=== PATIENT | female | born 1970 | race Caucasian/White ===

== ENCOUNTER 2020-06-20 10:05 | Inpatient (IN) ==
[2020-06-20] MEDS ORDERED: IOPAMIDOL 125 ML BOTTLE IV ONE (10:06)
[2020-06-20] MEDS ORDERED: 0.9 % SODIUM CHLORIDE 1,000 ML IV ONE ×2 (10:31→13:32)
[2020-06-20] MEDS ORDERED: ONDANSETRON 4 MG/2 ML VIAL IV ONE (10:31)
--- NOTE | 2020-06-20 10:36 | Emergency Department Note ---
HPI General Chief complaint: Cold/Flu Symptoms Stated complaint: N/V/D, fever chills shortness of breath Time Seen by Provider: 06/20/20 13:22 Source: patient Mode of arrival: ambulatory Limitations: no limitations History of Present Illness HPI Narrative: Narrative: 50-year-old female patient presents emergency dep artment chief complaint of worsening nausea, vomiting, diarrhea, abdominal pain x5 days. Patient tells me symptoms started Thursday with nausea. She has vomited too numerous to count. She contacted her primary care provider who started her on Zofran ODT. She mentions this been slightly helpful. She still continues to be nauseated but has not vomited today. She has had multiple bowel movements. She denies hematochezia or melena. She denies any hematemesis. She denies any other sick contacts at home. She denies any known Covid exposure. She denies ingesting any foul or suspicious foods prior to symptom onset. She describes her abdominal pain as diffuse but at times she does have a radiating pain from her right flank into her groin. She admits to history of renal calculi. She has known type II diabetic that currently uses insulin but is unsure what her blood sugars are because she does not take it regularly. ROS: Denies systemic illness, fever, sweats, chills. Denies headaches, tinnitus, or vision changes. Admits to chronic runny nose. Denies sinus congestion or cough. Admits to dyspnea with exertion. Denies shortness of breath currently. Denies retrosternal chest pain or palpitations. Denies dysuria, hematuria, urinary frequency, or urinary urgency. Admits to generalized weakness. Related Data Home Medications Medication Instructions Recorded Confirmed insulin glargine [Lantus Solostar 80 unit SUBCUT HS 06/20/20 06/20/20 U-100 Insulin] ondansetron HCl [Zofran] 8 mg PO Q8H PRN 06/20/20 06/20/20 telmisartan 40 mg PO DAILY 06/20/20 06/20/20 Allergies Allergy/AdvReac Type Severity Reaction Status Date / Time No Known Drug Allergies Allergy Unverified 06/20/20 10:06 Review of Systems ROS ROS Narrative: Narrative: All systems ED: reviewed and negative except as stated. [facility] Narrative Patient History Narrative: Narrative: Medical/Surgical/Family History All Active Problems (Updated 06/20/20 @ 14:38 by Juan R Kwon PA-C) Diabetic ketoacidosis (Acute) UTI (urinary tract infection) (Acute) Essential hypertension (Acute) Type 2 diabetes mellitus (Acute) Medical History (Updated 06/20/20 @ 14:38 by Juan R Kwon PA-C) Essential hypertension (Acute) Type 2 diabetes mellitus (Acute) Surgical History (Updated 06/20/20 @ 10:36 by Juan R Kwon PA-C) Hx of cholecystectomy (Acute) Social History Smoking Status: Never smoker Exam Narrative Narrative: Narrative: General Limitations: no limitations General appearance: Present other (Well-developed, well-nourished, morbidly obese, and acutely ill-appearing 50-year-old female patient laying semirecumbent on the emergency room gurney in no acute respiratory distress. She is afebrile with normal vital signs.) Head Head: Present normocephalic Eye Eye: Present normal appearance, PERRL and EOMI; Absent scleral icterus and conjunctival injection ENT ENT: Present normal oropharynx and mucous membranes dry Neck Neck: Present trachea midline; Absent lymphadenopathy and thyromegaly Chest Chest: Present symmetric chest wall rise Respiratory Respiratory: Present normal lung sounds bilaterally; Absent respiratory distress, wheezes, stridor, accessory muscle use and prolonged expiratory phase Cardiovascular Cardiovascular: Present regular rate and normal rhythm; Absent systolic murmur and diastolic murmur Adbominal Abdominal: Present soft, tenderness and normal bowel sounds; Absent distention, guarding, rebound, rigidity, organomegaly and mass Expanded Abdominal Abdominal Tenderness: Present diffuse and mild Extremities Extremities: Present normal inspection, full ROM and normal capillary refill; Absent pedal edema Neurological Neurological: Present alert and oriented X3 Psychiatric Psychiatric: Present normal affect and normal mood Skin Skin: Present warm (WNL), dry and normal color Course Course Course Narrative: Differential diagnosis of nausea and vomiting in the adult patient includes the following: Acute gastroenteritis, vestibular neuritis, gastroparesis, GERD, cyclic vomiting syndrome, gastric outlet obstruction, eosinophilic gastroenteritis, and chronic idiopathic intestinal pseudoobstruction. Patient has had 5 days history of profuse nausea, vomiting, diarrhea. She appears dehydrated on exam. We are going to get orthostatic vital signs. We will order some screening laboratory studies including a UA. Patient has a history of renal stones we will wait for the results of her urinalysis prior to ordering any patient was given normal saline 1000 mL as a bolus. She was given Zofran 4 mg IVP to help with the nausea. Reevaluation(s) Reevaluation #1: Orthostatic vital signs showed a decrease in blood pressure from 146/77 laying to 127/68 standing. Time: 11:29 Reevaluation #2: A review the patient's diagnostics of the following: CBC WBC 13.9, all others normal limits. Lactic acid 1.3, CMP sodium 125 (corrected 130), potassium 2.3, chloride 87, CO2 15, anion gap 23, BUN 31, creatinine 1.3, glucose 430, alkaline phosphatase 128, globulin 4.2, all others normal limits. Beta hydroxybutyrate 6.14. UA showing hazy yellow urine specific gravity 1.025, positive proteinuria, positive glucosuria, positive ketonuria, positive leukocyte Estrace, positive WBC, positive mucus, this is going be sent for cult ure. Rapid swab for both Covid/influenza negative. After reviewing all the data patient was provided potassium 20 mEq p.o. in conjunction with regular insulin 5 units IVP. I discussed case briefly my collaborating physician (Dr. Mao) and at this time he recommended adding a venous blood gas to the patient's work-up. Time: 13:03 Reevaluation #3: Venous blood gas showing lactic acid 1.3, base excess -12, carboxyhemoglobin 3.4, total hemoglobin 12.4. After reviewing all the data I discussed these findings with the patient. She appears to be a diabetic ketoacidosis. She meets admission criteria. With this in mind I reached out to our hospitalist (Dr. Carlisle) discussed case briefly with him. At this time the hospitalist did recommend a CT scan of the patient's abdomen/pelvis due to her history of right-sided flank pain and evidence of UTI this will help rule out either renal calculi versus pyelonephritis. He also recommended an insulin drip to be provided to the patient. At this time the hospitalist is going to admit the patient here to our facility. All further treatment decisions, modalities, and ultimate patient disposition will be carried out by the hospitalist. Time: 14:36 Vital Signs Vital signs: Vital Signs Temperature 99 F 06/20/20 10:09 Pulse Rate 89 06/20/20 10:09 Respiratory Rate 18 06/20/20 10:09 Blood Pressure 141/51 06/20/20 10:09 Pulse Oximetry (%) 96 06/20/20 10:09 Temperature 99.3 F H 06/20/20 16:24 Pulse Rate 89 06/20/20 16:28 Respiratory Rate 18 06/20/20 16:28 Blood Pressure 163/89 06/20/20 16:24 Pulse Oximetry (%) 100 06/20/20 16:28 MDM MDM Narrative Medical decision making narrative: Narrative: Lab Data Lab results reviewed: Yes I reviewed the patient's lab results. Result diagrams: 06/20/20 11:18 06/20/20 11:18 Labs: Lab Results 06/20/20 06/20/20 06/20/20 Range/Units 11:18 11:18 11:18 WBC 13.9 H (4.5-11.0) K/mcL RBC 4.48 (4.00-5.20) M/mcL Hgb 12.8 (12.0-15.0) g/dL Hct 38.2 (36.0-48.0) % MCV 85.3 (80.0-100.0) fL MCH 28.6 (26.0-34.0) pg MCHC 33.5 (31.0-36.0) g/dL RDW 11.7 (11.5-14.5) % Plt Count 211 (140-440) K/mcL MPV 9.5 (7.4-10.4) fL Neut % (Auto) 83.3 H (38.0-78.0) % Lymph % (Auto) 2.7 L (15.0-49.0) % [place] % (Auto) 13.9 H (1.0-12.0) % Eos % (Auto) 0 (0.0-7.0) % Baso % (Auto) 0.1 (0.0-2.0) % Lymph # (Auto) 0.37 L (1.50-4.80) K/mcL [place] # (Auto) 1.93 H (0.10-0.90) K/mcL Eos # (Auto) 0 (0.00-0.70) K/mcL Baso # (Auto) 0.02 (0.00-0.20) K/mcL Absolute Neutrophils 11.53 H (1.80-8.00) K/mcL ABG Methemoglobin (0.4-1.5) % VBG pH U VBG pCO2 mmHg VBG pO2 mmHg VBG HCO3 mmol/L VBG Total CO2 mmol/L VBG O2 Saturation % VBG Base Excess (-2-3) VBG Lactic Acid 1.3 (0.5-2.0) mmol/L Carboxyhemoglobin (0.0-1.5) % THgb Total Hemoglobin (13.5-16.5) gm/Dl Sodium 125 L (133-145) mmol/L Potassium 3.3 (3.3-5.1) mmol/L Chloride 87 L (96-108) mmol/L Carbon Dioxide 15 L (22-30) mmol/L Anion Gap 23.0 H (8.0-16.0) BUN 31 H (6-20) mg/dL Creatinine 1.3 H (0.6-1.1) mg/dL GFR Calculation 48 Glucose 430 H (70-105) mg/dL Calcium 9.1 (8.6-10.4) mg/dL Total Bilirubin 0.4 (0.1-1.0) mg/dL AST 10 (<32) U/L ALT 14 (<40) U/L Alkaline Phosphatase 128 H (39-117) U/L Total Protein 7.4 (5.9-8.4) gm/dL Albumin 3.2 (3.2-5.2) gm/dL Globulin 4.2 H (2.2-3.7) gm/dL Albumin/Globulin Ratio 0.8 L (1.0-2.3) Beta-Hydroxybutyrate 6.14 H (<0.27) mmol/L Urine Color Urine Appearance (Clear) Urine pH (5.0-9.0) Ur Specific [place] (1.000-1.035) Urine Protein (Negative) mg/dL Urine Glucose (UA) (Negative) mg/dL Urine Ketones (Negative) mg/dL Urine Occult Blood (Negative) mg/dL Urine Nitrate (Negative) Urine Bilirubin (Negative) mg/dL Urine Urobilinogen mg/dL Ur Leukocyte Esterase (Negative) /ug Urine RBC (0-3) /hpf Urine WBC (0-4) /hpf Ur Squamous Epith Cells (0-4) /hpf Urine Bacteria (0) /hpf Urine Mucus (None) /hpf Ur Culture Indicated? 06/20/20 06/20/20 Range/Units 11:35 13:51 WBC (4.5-11.0) K/mcL RBC (4.00-5.20) M/mcL Hgb (12.0-15.0) g/dL Hct (36.0-48.0) % MCV (80.0-100.0) fL MCH (26.0-34.0) pg MCHC (31.0-36.0) g/dL RDW (11.5-14.5) % Plt Count (140-440) K/mcL MPV (7.4-10.4) fL Neut % (Auto) (38.0-78.0) % Lymph % (Auto) (15.0-49.0) % [place] % (Auto) (1.0-12.0) % Eos % (Auto) (0.0-7.0) % Baso % (Auto) (0.0-2.0) % Lymph # (Auto) (1.50-4.80) K/mcL [place] # (Auto) (0.10-0.90) K/mcL Eos # (Auto) (0.00-0.70) K/mcL Baso # (Auto) (0.00-0.20) K/mcL Absolute Neutrophils (1.80-8.00) K/mcL ABG Methemoglobin 0.3 L (0.4-1.5) % VBG pH 7.23 U VBG pCO2 36.7 mmHg VBG pO2 45.0 mmHg VBG HCO3 14.9 mmol/L VBG Total CO2 16.0 mmol/L VBG O2 Saturation 68.4 % VBG Base Excess -12 L (-2-3) VBG Lactic Acid (0.5-2.0) mmol/L Carboxyhemoglobin 3.4 H (0.0-1.5) % THgb Total Hemoglobin 12.4 L (13.5-16.5) gm/Dl Sodium (133-145) mmol/L Potassium (3.3-5.1) mmol/L Chloride (96-108) mmol/L Carbon Dioxide (22-30) mmol/L Anion Gap (8.0-16.0) BUN (6-20) mg/dL Creatinine (0.6-1.1) mg/dL GFR Calculation Glucose (70-105) mg/dL Calcium (8.6-10.4) mg/dL Total Bilirubin (0.1-1.0) mg/dL AST (<32) U/L ALT (<40) U/L Alkaline Phosphatase (39-117) U/L Total Protein (5.9-8.4) gm/dL Albumin (3.2-5.2) gm/dL Globulin (2.2-3.7) gm/dL Albumin/Globulin Ratio (1.0-2.3) Beta-Hydroxybutyrate (<0.27) mmol/L Urine Color Yellow Urine Appearance Hazy A (Clear) Urine pH 6.0 (5.0-9.0) Ur Specific [place] 1.025 (1.000-1.035) Urine Protein 100 A (Negative) mg/dL Urine Glucose (UA) >=500 A (Negative) mg/dL Urine Ketones 80 A (Negative) mg/dL Urine Occult Blood 0.20 (Negative) mg/dL Urine Nitrate Negative (Negative) Urine Bilirubin Negative (Negative) mg/dL Urine Urobilinogen Negative mg/dL Ur Leukocyte Esterase 500 A (Negative) /ug Urine RBC 32 H (0-3) /hpf Urine WBC 105 H (0-4) /hpf Ur Squamous Epith Cells 1 (0-4) /hpf Urine Bacteria None (0) /hpf Urine Mucus Few A (None) /hpf Ur Culture Indicated? yes ED POC Tests ED POC Tests: ELIER - Influenza A Negative ELIER - Influenza B Negative ELIER - SARS Antigen Negative Discharge Plan Patient/Caregiver Discharge Instructions Pt seen by [facility]/PA only: Yes Clinical Impression: Diabetic ketoacidosis Qualifiers: Diabetes mellitus type: type 2 Diabetes mellitus complication detail: without coma Qualified Code(s): E11.10 - Type 2 diabetes mellitus with ketoacidosis without coma UTI (urinary tract infection) Qualifiers: Urinary tract infection type: site unspecified Hematuria presence: with hematuria Qualified Code(s): N39.0 - Urinary tract infection, site not specified Patient Disposition: Xfer As Inpt ([facility]) Condition: Good Discharge Date/Time: 06/20/20 16:11
[2020-06-20 12:14] LABS: Basophils # (Auto) 0.02 K/mcL (0.00-0.20); Basophils % (Auto) 0.1 % (0.0-2.0); Eosinophils # (Auto) 0 K/mcL (0.00-0.70); Eosinophils % (Auto) 0 % (0.0-7.0); Hematocrit 38.2 % (36.0-48.0); Hemoglobin 12.8 g/dL (12.0-15.0); Lymphocytes # (Auto) 0.37 K/mcL (1.50-4.80); Lymphocytes % (Auto) 2.7 % (15.0-49.0); Mean Cell Volume 85.3 fL (80.0-100.0); Mean Corpuscular HGB Conc 33.5 g/dL (31.0-36.0); Mean Platelet Volume 9.5 fL (7.4-10.4); Monocytes # (Auto) 1.93 K/mcL (0.10-0.90); Monocytes % (Auto) 13.9 % (1.0-12.0); Neutrophils % (Auto) 83.3 % (38.0-78.0); Platelet Count 211 K/mcL (140-440); RBC 4.48 M/mcL (4.00-5.20); Red Cell Distribution Width 11.7 % (11.5-14.5); WBC 13.9 K/mcL (4.5-11.0)
[2020-06-20 12:46] LABS: ALT/SGPT 14 U/L (<40); AST/SGOT 10 U/L (<32); Albumin 3.2 gm/dL (3.2-5.2); Albumin/Globulin Ratio 0.8 (1.0-2.3); Alkaline Phosphatase 128 U/L (39-117); Bilirubin,Total 0.4 mg/dL (0.1-1.0); Blood Urea Nitrogen 31 mg/dL (6-20); Calcium 9.1 mg/dL (8.6-10.4); Carbon Dioxide 15 mmol/L (22-30); Chloride 87 mmol/L (96-108); Globulin 4.2 gm/dL (2.2-3.7); Glomerular Filtration Rate 48; Glucose 430 mg/dL (70-105)
[2020-06-20] MEDS ORDERED: INSULIN REGULAR, HUMAN 1 UNIT/0.01 ML UNIT IV ONE ×2 (13:02→16:23)
[2020-06-20] MEDS ORDERED: POTASSIUM CHLORIDE 20 MEQ TABLET PO ONE (13:02)
[2020-06-20 13:15] LABS: Appearance,Urine HAZY (Clear); Bilirubin,Urine Negative (Negative); Color,Urine YELLOW; Culture Indicated,Urine yes; Glucose,Urine (UA) >=500 mg/dL (Negative); Ketones,Urine 80 mg/dL (Negative); Leukocyte Esterase,Urine 500 /ug (Negative); Mucus,Urine FEW /hpf; Nitrate,Urine Negative (Negative); Protein,Urine 100 mg/dL (Negative); Specific Gravity,Urine 1.025 (1.000-1.035); Urine RBC 32 /hpf (0-3); Urine Squamous Epithelial Cell 1 /hpf (0-4); Urine WBC 105 /hpf (0-4); Urobilinogen,Urine Negative
[2020-06-20 13:49] LABS: Beta Hydroxybutyrate 6.14 mmol/L (<0.27)
[2020-06-20 14:21] LABS: ABG Methemoglobin 0.3 % (0.4-1.5); Total Hemoglobin 12.4 gm/Dl (13.5-16.5); VBG Base Excess -12 (-2-3); VBG HCO3 14.9 mmol/L; VBG Oxygen Saturation 68.4 %; VBG PCO2 36.7 mmHg; VBG PH 7.23 U
[2020-06-20] MEDS ORDERED: POTASSIUM CHLORIDE 20 MEQ in DEXTROSE 5% IN WATER 250 ML IV ONE (14:30)
[2020-06-20] MEDS ORDERED: INSULIN REGULAR, HUMAN 50 UNIT in 0.9 % SODIUM CHLORIDE 99.5 ML IV SCH (14:30)
--- NOTE | 2020-06-20 14:43 | Internal Med History&Physical ---
HPI History of Present Illness Patient information: Note initiated : 06/20/20 at 2:34 pm Service Date, if different from initiated Date: [] Patient: Cally Gordon a 50 y/o F admitted on for N/V/D, Fever Chills Shortness Of Breath. Chief Complaint: [] History of present illness: Ms. Gordon is a 50 year old F Who presents the ED with nausea vomiting diarrhea weakness. Patient went to bed on Thursday night feeling well but woke up Thursday morning start developing nausea vomiting and then some diarrhea on Thursday last episode of diarrhea was yesterday is had nausea today but no vomiting today. She is had headache. Denies fevers or chills. She does admit to some right flank pain with some radiation to groin. She is a diabetic and has not checked her blood glucose in several weeks at least. Last A1c was 11. She does not adhere to a strict diabetic diet. She last took her insulin on Thursday. She denies dysuria but notes her urine has been malodorous. In the ED she was worked up and had a leukocytosis as well as urine analysis was consistent with infection. Appear to be in DKA on laboratory evaluation. She is given IV fluid boluses in the ED and started on insulin drip. Review of Systems: Pertinent positives as above. Denies fever/chills/chest pain/cough/dyspnea. Remaining 10 point review of system reviewed negative. PFSH PFSH All Active Problems (Updated 06/20/20 @ 14:38 by Juan R Kwon PA-C) Diabetic ketoacidosis (Acute) UTI (urinary tract infection) (Acute) Essential hypertension (Acute) Type 2 diabetes mellitus (Acute) Medical History (Updated 06/20/20 @ 14:38 by Juan R Kwon PA-C) Essential hypertension (Acute) Type 2 diabetes mellitus (Acute) Surgical History (Updated 06/20/20 @ 10:36 by Juan R Kwon PA-C) Hx of cholecystectomy (Acute) Social History (Updated 06/20/20 @ 14:37 by Brett Carlisle DO) smoking status: Never smoker additional history: Past medical history please diabetes and hypertension Past surgical history: Kidney stone removal on the right Family: Mother had COPD and diabetes in father diabetes Social: Patient denies tobacco drinks alcohol socially lives by herself MEDS/ALLERGIES Home Medications and Allergies Home Medications Medication Instructions Recorded Confirmed Type Zofran 06/20/20 History insulin glargine [Lantus Solostar 80 unit SUBCUT HS 06/20/20 06/20/20 History U-100 Insulin] ondansetron HCl [Zofran] 4 mg PO Q6H PRN 06/20/20 06/20/20 History telmisartan 40 mg PO DAILY 06/20/20 06/20/20 History Allergies Allergy/AdvReac Type Severity Reaction Status Date / Time No Known Drug Allergies Allergy Unverified 06/20/20 10:06 EXAM Constitutional Vitals: Temp Pulse Resp BP Pulse Ox 99 F 89 18 149/62 98 06/20/20 10:09 06/20/20 14:13 06/20/20 11:03 06/20/20 14:13 06/20/20 14:13 Exam: General: Alert, Awake, No acute Distress, obese Eyes/N/T: EOMI, PERRL, dry MM Head/Neck: neck supple, normocephalic atraumatic CV: RRR, No murmurs, normal s1/s2 Pulm: Clear b/l, no wheezing/rhonchi/rales Abd: soft, nontender, +BS x4. Tenderness to palpation right CVA tenderness Ext: no clubbing/cyanosis/edema Neuro: Alert, no focal deficits, moves all extremities, CN 2-12 grossly intact, symmetrical strength b/l upper/lower, sensations intact b/l upper/lower Skin: warm/dry DATA Data Completed and Pending Labs: Labs from last 24 hours 06/20/20 06/20/20 06/20/20 13:51 11:35 11:18 WBC RBC Hgb Hct MCV MCH MCHC RDW Plt Count MPV Neut % (Auto) Lymph % (Auto) [place] % (Auto) Eos % (Auto) Baso % (Auto) Lymph # (Auto) [place] # (Auto) Eos # (Auto) Baso # (Auto) Absolute Neutrophils ABG Methemoglobin 0.3 L VBG pH 7.23 VBG pCO2 36.7 VBG pO2 45.0 VBG HCO3 14.9 VBG Total CO2 16.0 VBG O2 Saturation 68.4 VBG Base Excess -12 L VBG Lactic Acid 1.3 Carboxyhemoglobin 3.4 H Total Hemoglobin 12.4 L Sodium Potassium Chloride Carbon Dioxide Anion Gap BUN Creatinine GFR Calculation Glucose Calcium Total Bilirubin AST ALT Alkaline Phosphatase Total Protein Albumin Globulin Albumin/Globulin Ratio Beta-Hydroxybutyrate Urine Color Yellow Urine Appearance Hazy A Urine pH 6.0 Ur Specific [place] 1.025 Urine Protein 100 A Urine Glucose (UA) >=500 A Urine Ketones 80 A Urine Occult Blood 0.20 Urine Nitrate Negative Urine Bilirubin Negative Urine Urobilinogen Negative Ur Leukocyte Esterase 500 A Urine RBC 32 H Urine WBC 105 H Ur Squamous Epith Cells 1 Urine Bacteria None Urine Mucus Few A Ur Culture Indicated? yes 06/20/20 06/20/20 11:18 11:18 WBC 13.9 H RBC 4.48 Hgb 12.8 Hct 38.2 MCV 85.3 MCH 28.6 MCHC 33.5 RDW 11.7 Plt Count 211 MPV 9.5 Neut % (Auto) 83.3 H Lymph % (Auto) 2.7 L [place] % (Auto) 13.9 H Eos % (Auto) 0 Baso % (Auto) 0.1 Lymph # (Auto) 0.37 L [place] # (Auto) 1.93 H Eos # (Auto) 0 Baso # (Auto) 0.02 Absolute Neutrophils 11.53 H ABG Methemoglobin VBG pH VBG pCO2 VBG pO2 VBG HCO3 VBG Total CO2 VBG O2 Saturation VBG Base Excess VBG Lactic Acid Carboxyhemoglobin Total Hemoglobin Sodium 125 L Potassium 3.3 Chloride 87 L Carbon Dioxide 15 L Anion Gap 23.0 H BUN 31 H Creatinine 1.3 H GFR Calculation 48 Glucose 430 H Calcium 9.1 Total Bilirubin 0.4 AST 10 ALT 14 Alkaline Phosphatase 128 H Total Protein 7.4 Albumin 3.2 Globulin 4.2 H Albumin/Globulin Ratio 0.8 L Beta-Hydroxybutyrate 6.14 H Urine Color Urine Appearance Urine pH Ur Specific [place] Urine Protein Urine Glucose (UA) Urine Ketones Urine Occult Blood Urine Nitrate Urine Bilirubin Urine Urobilinogen Ur Leukocyte Esterase Urine RBC Urine WBC Ur Squamous Epith Cells Urine Bacteria Urine Mucus Ur Culture Indicated? A/P Narrative A/P Narrative: A: *DKA: *AG Met Acidosis: 2/2 above *SIRS: *UTI: *Pseudohyponatremia: *ULICSE: *DM II: uncontrolled, needs education on diet and BG monitoring *HTN: on ARB *Right flank pain: pending CT, stone vs pyelo *Obesity: P: -IVF's -insulin gtt -monitor electrolytes -Rocephin, pending UC -check a1c - -ppx: Lovenox Time Spent With Patient Time: Total time spent is greater than 50% in coordination of care (as documented) at patient's floor/unit and/or counseling patient:
--- NOTE | 2020-06-20 15:22 | Cat Scan Report ---
CLINICAL INFORMATION: Right flank pain and fever COMPARISON: None. TECHNIQUE: 2.5mm precontrast images were obtained from kidneys through bladder. 60 cc of Isovue-370 were then injected intravenously. 7 minutes later, 60 cc of Isovue 370 was reinjected and 8 minutes after initial injection, 0.625 mm helical slices were obtained from the mid heart through the subtrochanteric regions of the femurs. Following reconstruction, 2.5 mm sagittal, coronal and axial reformatted images were obtained through the entire abdomen. The exam was performed using radiation dose optimization techniques including, but not limited to, automated exposure control, adjustment of the mA and/or kV according to patient size and use of iterative reconstruction technique. FINDINGS: Lung bases show no abnormality - no effusion. The visualized heart is normal. Small hiatal hernia appreciated. Abdominal images show the gallbladder is surgically absent. Intrahepatic and common bile ducts are normal caliber: CBD is 6 mm. The liver, right adrenal gland, spleen, pancreas and aorta are normal in size configuration and attenuation without focal lesion. There is a 2.2 cm benign adenoma in the anterior limb of the left adrenal gland. Tiny (2 mm) stone is seen in the proximal right ureter which does not result in hydronephrosis. The postcontrast images show mild right renal enlargement with marked inhomogeneous parenchymal attenuation compatible with pyelonephritis. In addition, there is mild thickening the transitional epithelium within the calyces and pelvis. There is also mild inflammatory perinephric stranding. The left kidney, left upper collecting system and left ureter are all unremarkable. Pelvic images show anteflexed uterus which is normal in size: 8.2 x 4 cm. Both ovaries are normal. Urinary bladder is unremarkable. Few sigmoid diverticuli appreciated, but no evidence of diverticulitis. The remaining colon, appendix, small bowel and stomach are grossly normal. Bone windows show no osseous abnormality. IMPRESSION: 1. Classic right pyelonephritis. 2. 2 mm stone in the proximal right ureter which does not appear to be causing hydronephrosis. This should pass spontaneously. 3. Small hiatal hernia. 4. 2.2 cm benign adenoma left adrenal gland. 5. Sigmoid diverticulosis - no CT evidence for diverticulitis Interpreted and Authenticated by: Shaka Anderson 06/20/20
[2020-06-20] MEDS ORDERED: POTASSIUM CHLORIDE 40 MEQ in DEXTROSE 5% IN WATER 500 ML IV PRN (16:11)
[2020-06-20] MEDS ORDERED: ACETAMINOPHEN 325 MG TABLET PO PRN (16:11)
[2020-06-20] MEDS ORDERED: ENOXAPARIN 40 MG/0.4 ML SYRINGE SQ SCH (16:11)
[2020-06-20] MEDS ORDERED: METOCLOPRAMIDE 10 MG/2 ML VIAL IV PRN (16:11)
[2020-06-20] MEDS ORDERED: POTASSIUM CHLORIDE 20 MEQ TABLET PO PRN ×2 (16:11)
[2020-06-20] MEDS ORDERED: SENNOSIDES 1 TABLET PO PRN (16:11)
[2020-06-20] MEDS ORDERED: LABETALOL 5 MG/ML ML IV PRN (16:11)
[2020-06-20] MEDS ORDERED: MAGNESIUM SULFATE 2 GM/50 ML BAG IV PRN (16:11)
[2020-06-20] MEDS ORDERED: cefTRIAXone 1 GM VIAL IV SCH (16:11)
[2020-06-20] MEDS: 0.9 % SODIUM CHLORIDE 1,000 ML IV SCH ×2 (16:16→18:48)
[2020-06-20 17:09] LABS: Phosphorous 2.7 mg/dL (2.5-4.5)
[2020-06-20] MEDS: ONDANSETRON 4 MG/2 ML VIAL IV PRN (17:11)
[2020-06-20] MEDS: DEXTROSE 5%-NS 1,000 ML IV SCH (19:13)
[2020-06-20] MEDS: HYDROcodone/APAP 5/325MG TABLET PO PRN (19:24)
[2020-06-20] MEDS: INSULIN REGULAR, HUMAN 50 UNIT in 0.9 % SODIUM CHLORIDE 99.5 ML IV SCH (19:38)
[2020-06-20] MEDS: 0.9 % SODIUM CHLORIDE 10 ML SYRINGE IV SCH (20:15)
[2020-06-20] MEDS ORDERED: DOCUSATE SODIUM 100 MG CAPSULE PO SCH (21:00)
[2020-06-20] MEDS ORDERED: INSULIN GLARGINE, HUMAN 1 UNIT/0.01 ML SQ SCH (21:00)
[2020-06-20] MEDS ORDERED: 0.9 % SODIUM CHLORIDE 250 ML IV SCH (23:00)
[2020-06-21] MEDS: INSULIN REGULAR, HUMAN 50 UNIT in 0.9 % SODIUM CHLORIDE 99.5 ML IV SCH (00:10)
[2020-06-21] MEDS ORDERED: DEXTROSE 50% 50 ML VIAL IV PRN ×3 (00:18→09:08)
[2020-06-21] MEDS ORDERED: DEXTROSE 50% 50 ML VIAL IV ONE (00:31)
[2020-06-21] MEDS: DEXTROSE 5%-NS 1,000 ML IV SCH ×2 (00:54→06:01)
[2020-06-21] MEDS: HYDROcodone/APAP 5/325MG TABLET PO PRN ×3 (03:15→20:45)
[2020-06-21] MEDS: 0.9 % SODIUM CHLORIDE 10 ML SYRINGE IV SCH ×3 (06:07→20:46)
[2020-06-21 06:33] LABS: Basophils # (Auto) 0.02 K/mcL (0.00-0.20); Basophils % (Auto) 0.2 % (0.0-2.0); Eosinophils # (Auto) 0.03 K/mcL (0.00-0.70); Eosinophils % (Auto) 0.2 % (0.0-7.0); Hematocrit 31.1 % (36.0-48.0); Hemoglobin 10.5 g/dL (12.0-15.0); Lymphocytes # (Auto) 0.45 K/mcL (1.50-4.80); Lymphocytes % (Auto) 3.7 % (15.0-49.0); Mean Cell Volume 84.1 fL (80.0-100.0); Mean Corpuscular HGB Conc 33.8 g/dL (31.0-36.0); Mean Platelet Volume 9.5 fL (7.4-10.4); Monocytes # (Auto) 1.88 K/mcL (0.10-0.90); Monocytes % (Auto) 15.7 % (1.0-12.0); Neutrophils % (Auto) 80.2 % (38.0-78.0); Platelet Count 200 K/mcL (140-440); Red Cell Distribution Width 11.9 % (11.5-14.5)
[2020-06-21 07:13] LABS: ALT/SGPT 12 U/L (<40); AST/SGOT 14 U/L (<32); Albumin 2.1 gm/dL (3.2-5.2); Albumin/Globulin Ratio 0.6 (1.0-2.3); Alkaline Phosphatase 91 U/L (39-117); Bilirubin,Direct < 0.2 mg/dL (<0.3); Bilirubin,Total 0.2 mg/dL (0.1-1.0); Blood Urea Nitrogen 18 mg/dL (6-20); Carbon Dioxide 18 mmol/L (22-30); Chloride 105 mmol/L (96-108); Globulin 3.6 gm/dL (2.2-3.7); Glomerular Filtration Rate 75; Glucose 132 mg/dL (70-105); Lactate Dehydrogenase 188 U/L (135-225); Triglycerides 153 mg/dL (<150); Uric Acid 6.8 mg/dL (2.5-8.0)
--- NOTE | 2020-06-21 07:17 | Internal Med Progress Note ---
SUBJECTIVE Subjective Patient information: Note initiated : 06/21/20 at 7:11 am Service Date, if different from initiated Date: [] Patient: Cally Gordon 50 y/o F admitted on 06/20/20 for N/V/D, Fever Chills Shortness Of Breath. Chief Complaint: [] Interval history: History of present illness: Ms. Gordon is a 50 year old F Who presents the ED with nausea vomiting diarrhea weakness. Patient went to bed on Thursday night feeling well but woke up Thursday morning start developing nausea vomiting and then some diarrhea on Thursday last episode of diarrhea was yesterday is had nausea today but no vomiting today. She is had headache. Denies fevers or chills. She does admit to some right flank pain with some radiation to groin. She is a diabetic and has not checked her blood glucose in several weeks at least. Last A1c was 11. She does not adhere to a strict diabetic diet. She last took her insulin on Thursday. She denies dysuria but notes her urine has been malodorous. In the ED she was worked up and had a leukocytosis as well as urine analysis was consistent with infection. Appear to be in DKA on laboratory evaluation. She is given IV fluid boluses in the ED and started on insulin drip. 06/[address] and clinical exam consistent with pyelonephritis. Right flank pain improved. Electrolyte imbalance. Replaced. Review of Systems: denies headache/fever/chills/nausea/vomiting/chest or abdominal pain/cough /dyspnea/diarrhea. Otherwise see above. Constitutional Vitals: Vital Signs Temp Pulse Resp BP Pulse Ox 98 F 72 16 149/76 97 06/21/20 04:00 06/21/20 06:00 06/21/20 06:00 06/21/20 06:00 06/21/20 06:00 Period Temp Pulse Resp BP Sys/[place] Pulse Ox Last 24 Hr 98 F-99.3 F 72-94 15-26 119-179/51-149 96-100 Intake and Output 06/20/20 06/21/20 06/21/20 21:59 05:59 13:59 Intake Total 1548 3068 14 Output Total 1600 400 Balance -52 6398 14 Weight 107.365 kg Intake & Output: Intake & Output 02/17/21 02/18/21 02/18/21 21:59 05:59 13:59 Intake Total 1548 3068 14 Output Total 1600 400 Balance -52 2668 14 Weight 107.365 kg Intake: IV 1548 2168 14 Sodium Chloride 0.9% 1,000 ml @ 1113 200 mls/hr IV .Q5H [facility] Rx#: [id number] Dextrose 5%-Ns IV Solution 1, 2000 000 ml @ 200 mls/hr IV .Q5H [facility] Rx#:[id number] HumuLIN R 50 UNIT In Sodium 100 168 14 Chloride 0.9% 99.5 ml @ 10 UNIT /HR 20 mls/hr IV DUR [facility] Rx#: [id number] Potassium Chloride 20 Meq In 335 Dextrose 5% in Water 250 ml @ 130 mls/hr IV ONCE ONE Rx#: [id number] Oral 900 Output: Void Amount 1600 400 Other: Urine Appearance Cloudy Cloudy Sediment Urine Color Bright Yellow Dark Yellow Urine Odor Strong Strong Exam: General: Alert, Awake, No acute Distress, obese Eyes/N/T: EOMI, Head/Neck: neck supple, CV: RRR, 2/6 SM Pulm: Clear b/l, no wheezing/rhonchi/rales Abd: soft, nontender, +BS x4. Tenderness to palpation right CVA tenderness improved Ext: no clubbing/cyanosis/edema Neuro: Alert, no focal deficits, moves all extremities, Skin: warm/dry OBJ DATA Labs CBC & Chem 7: 06/21/20 05:30 06/21/20 05:30 Labs: Abnormal Lab Results 06/21/20 06/20/20 06/20/20 05:30 13:51 11:35 WBC 12.0 H RBC 3.70 L Hgb 10.5 L Hct 31.1 L Neut % (Auto) 80.2 H Lymph % (Auto) 3.7 L [place] % (Auto) 15.7 H Lymph # (Auto) 0.45 L [place] # (Auto) 1.88 H Absolute Neutrophils 9.63 H ABG Methemoglobin 0.3 L VBG Base Excess -12 L Carboxyhemoglobin 3.4 H Total Hemoglobin 12.4 L Sodium Chloride Carbon Dioxide Anion Gap BUN Creatinine Glucose Hemoglobin A1c Alkaline Phosphatase Globulin Albumin/Globulin Ratio Beta-Hydroxybutyrate Urine Appearance Hazy A Urine Protein 100 A Urine Glucose (UA) >=500 A Urine Ketones 80 A Ur Leukocyte Esterase 500 A Urine RBC 32 H Urine WBC 105 H Urine Mucus Few A 06/20/20 06/20/20 06/20/20 11:18 11:18 11:18 WBC 13.9 H RBC Hgb Hct Neut % (Auto) 83.3 H Lymph % (Auto) 2.7 L [place] % (Auto) 13.9 H Lymph # (Auto) 0.37 L [place] # (Auto) 1.93 H Absolute Neutrophils 11.53 H ABG Methemoglobin VBG Base Excess Carboxyhemoglobin Total Hemoglobin Sodium 125 L Chloride 87 L Carbon Dioxide 15 L Anion Gap 23.0 H BUN 31 H Creatinine 1.3 H Glucose 430 H Hemoglobin A1c 10.0 H Alkaline Phosphatase 128 H Globulin 4.2 H Albumin/Globulin Ratio 0.8 L Beta-Hydroxybutyrate 6.14 H Urine Appearance Urine Protein Urine Glucose (UA) Urine Ketones Ur Leukocyte Esterase Urine RBC Urine WBC Urine Mucus Meds: Medications Acetaminophen (Tylenol) 650 mg PO Q6HP PRN PRN Reason: PAIN/FEVER > 101 Hydrocodone Bitart/Acetaminophen ([place] 5/325mg) 1 tab PO Q4HP PRN PRN Reason: PAIN LEVEL 3-6 Last Admin: 06/21/20 03:15 Dose: 1 tab Documented by: Ceftriaxone Sodium (Rocephin) 1 gm IV DAILY [facility]; Protocol Last Admin: 06/20/20 17:04 Dose: 1 gm Documented by: Dextrose (Dextrose 50%) 25 ml IV PRN PRN PRN Reason: Blood Sugar - Low Last Admin: 06/21/20 00:27 Dose: 25 ml Documented by: Diagnostic Test (Pha) (Accu-Chek) 1 each FS Q1 [facility] Last Admin: 06/21/20 07:04 Dose: 1 each Documented by: Docusate Sodium (Colace) 100 mg PO BID [facility] Last Admin: 06/20/20 20:15 Dose: Not Given Documented by: Enoxaparin Sodium (Lovenox) 40 mg SQ DAILY [facility] Last Admin: 06/20/20 17:05 Dose: 40 mg Documented by: Insulin Human Regular 50 unit/ (Sodium Chloride) 100 mls @ 20 mls/hr IV DUR [facility]; Protocol Last Titration: 06/21/20 07:04 Dose: 4 unit/hr, 8 mls/hr Documented by: Potassium Chloride 40 meq/ (Dextrose) 520 mls @ 130 mls/hr IV UD PRN PRN Reason: Potassium < 3 Magnesium Sulfate (Magnesium Sulfate) 2 gm in 50 mls @ 50 mls/hr IV UD PRN PRN Reason: Magnesium </= 1.6 Dextrose/Sodium Chloride (Dextrose 5%-Ns Iv Solution) 1,000 mls @ 200 mls/hr IV .Q5H [facility] Last Admin: 06/21/20 06:01 Dose: 200 mls/hr Documented by: Sodium Chloride (Sodium Chloride 0.9%) 250 mls @ 20 mls/hr IV .[id number] [facility] Last Admin: 06/20/20 23:07 Dose: 20 mls/hr Documented by: Insulin Glargine (Lantus) 80 unit SQ HS [facility] Last Admin: 06/20/20 21:01 Dose: 80 units Documented by: Labetalol HCl (Trandate) 0 mg IV Q2HP PRN PRN Reason: Hypertension Metoclopramide HCl (Reglan) 10 mg IV Q6HP PRN PRN Reason: Nausea And Vomiting Ondansetron HCl (Zofran) 4 mg IV Q4HP PRN PRN Reason: Nausea And Vomiting Last Admin: 06/20/20 17:11 Dose: 4 mg Documented by: Potassium Chloride (Kdur) 40 meq PO UD PRN PRN Reason: Potssium is 3-3.5 Potassium Chloride (Kdur) 40 meq PO UD PRN PRN Reason: Potassium < 3 Senna (Senokot) 2 tab PO DAILYP PRN PRN Reason: Constipation Sodium Chloride (Saline Flush) 10 ml IV Q8 [facility] Last Admin: 06/21/20 06:07 Dose: Not Given Documented by: ABG Interpretation ABG results: 06/20/20 13:51 ABG Methemoglobin 0.3 L VBG pH 7.23 VBG pCO2 36.7 VBG pO2 45.0 VBG HCO3 14.9 VBG Total CO2 16.0 VBG O2 Saturation 68.4 VBG Base Excess -12 L A/P Narrative A/P Narrative: A: *DKA: *AG Met Acidosis: 2/2 above *Pyelonephritis: *SIRS: *Hypokalemia/hypophosphatemia: *ULICES: resolved *DM II: uncontrolled, needs education on diet and BG monitoring -A1c 10 *HTN: on ARB *Right flank pain: pending CT, stone vs pyelo *Obesity: P: -IVF's d/c -insulin gtt d/c and cont home basal insulin with SSI -monitor electrolytesa and replace -Rocephin, pending UC -DM education referral -ppx: Lovenox Time Spent With Patient Time: Total time spent is greater than 50% in coordination of care (as documented) at patient's floor/unit and/or counseling patient:
[2020-06-21] MEDS ORDERED: POTASSIUM PHOSPHATE 40 MEQ in DEXTROSE 5% IN WATER 500 ML IV ONE ×2 (07:18→17:00)
[2020-06-21] MEDS: ONDANSETRON 4 MG/2 ML VIAL IV PRN (08:14)
[2020-06-21] MEDS ORDERED: POTASSIUM CHLORIDE 40 MEQ in DEXTROSE 5% IN WATER 500 ML IV PRN (08:40)
[2020-06-21] MEDS ORDERED: ACETAMINOPHEN 325 MG TABLET PO PRN (08:40)
[2020-06-21] MEDS ORDERED: 0.9 % SODIUM CHLORIDE 250 ML IV SCH (08:40)
[2020-06-21] MEDS ORDERED: METOCLOPRAMIDE 10 MG/2 ML VIAL IV PRN (08:40)
[2020-06-21] MEDS ORDERED: MAGNESIUM SULFATE 2 GM/50 ML BAG IV PRN (08:40)
[2020-06-21] MEDS ORDERED: IOPAMIDOL 125 ML BOTTLE IV ONE (08:40)
[2020-06-21] MEDS ORDERED: SENNOSIDES 1 TABLET PO PRN (08:40)
[2020-06-21] MEDS ORDERED: POTASSIUM CHLORIDE 20 MEQ TABLET PO PRN ×2 (08:40)
[2020-06-21] MEDS ORDERED: ONDANSETRON 4 MG/2 ML VIAL IV PRN (08:40)
[2020-06-21] MEDS ORDERED: LABETALOL 5 MG/ML ML IV PRN (08:40)
[2020-06-21] MEDS: ENOXAPARIN 40 MG/0.4 ML SYRINGE SQ SCH (08:58)
[2020-06-21] MEDS: SODIUM BICARBONATE 650 MG TABLET PO SCH ×3 (08:58→21:49)
[2020-06-21] MEDS: DOCUSATE SODIUM 100 MG CAPSULE PO SCH ×2 (08:59→20:45)
[2020-06-21] MEDS ORDERED: SODIUM BICARBONATE 650 MG TABLET PO SCH (09:00)
[2020-06-21] MEDS ORDERED: DEXTROSE 31 GM ORAL.SUSP PO PRN (09:08)
[2020-06-21] MEDS: cefTRIAXone 1 GM VIAL IV SCH (09:09)
[2020-06-21] MEDS ORDERED: INSULIN LISPRO 1 UNIT/0.01 ML UNIT SQ SCH (09:15)
[2020-06-21] MEDS: INSULIN LISPRO 1 UNIT/0.01 ML UNIT SQ SCH ×4 (09:28→20:45)
--- NOTE | 2020-06-21 11:19 | Discharge Summary ---
Discharge Provider Provider Patient information: Note initiated : 06/21/20 at 11:18 am Service Date, if different from initiated Date: [] Patient: Cally Gordon 50 y/o F admitted on 06/20/20 for N/V/D, Fever Chills Shortness Of Breath. Chief Complaint: [] Date of admission: 06/20/20 16:00 Discharge date: 06/22/20 Primary care physician: Krissy Ernandez Consults: 06/20/20 Consult to Physician [CONS] Stat Comment: Consulting Provider: Brett Carlisle Reason For Exam: Physician to Consult Discharge Meds Discharge Medications Home Medications Lantus Solostar U-100 Insulin 80 unit SUBCUT HS 06/20/20 [History Confirmed 06/20/20 Last Taken 06/15/20 21:00] ondansetron HCl [Zofran] 8 mg PO Q8H PRN 06/20/20 [History Confirmed 06/20/20 Last Taken 06/20/20 07:00] telmisartan 40 mg PO DAILY 06/20/20 [History Confirmed 06/20/20 Last Taken 06/15/20 08:00] insulin aspart U-100 See Protocol SUBCUT ACHS #15 ml MDD 40 06/22/20 [Rx Last Taken Unknown] COURSE Hospital Course Hospital course: History of present illness: Ms. Gordon is a 50 year old F Who presents the ED with nausea vomiting diarrhea weakness. Patient went to bed on Thursday night feeling well but woke up Thursday morning start developing nausea vomiting and then some diarrhea on Thursday last episode of diarrhea was yesterday is had nausea today but no vomiting today. She is had headache. Denies fevers or chills. She does admit to some right flank pain with some radiation to groin. She is a diabetic and has not checked her blood glucose in several weeks at least. Last A1c was 11. She does not adhere to a strict diabetic diet. She last took her insulin on Thursday. She denies dysuria but notes her urine has been malodorous. In the ED she was worked up and had a leukocytosis as well as urine analysis was consistent with infection. Appear to be in DKA on laboratory evaluation. She is given IV fluid boluses in the ED and started on insulin drip. 06/[address] and clinical exam consistent with pyelonephritis. Right flank pain improved. Electrolyte imbalance. Replaced. 06/22 Doing well. Electrolytes stabilized. [employer] counseled patient on diabetic diet. Stable for discharge. A: *DKA: *AG Met Acidosis: / above *Pyelonephritis: *ULICES: resolved *DM II: uncontrolled, needs education on diet and BG monitoring -A1c 10 *HTN: on ARB *Obesity: Discharge diagnosis: DKA pyelonephritis acute kidney injury Secondary discharge diagnosis: Diabetes hypertension obesity Time Spent with Patient Time attestation: Total time spent providing and/or coordinating discharge ser vices: Time spent: Greater than 30 minutes EXAM Constitutional Vitals: Temp Pulse Resp BP Pulse Ox 98.1 F 75 15 147/69 97 06/21/20 07:01 06/21/20 07:01 06/21/20 07:01 06/21/20 07:01 06/21/20 07:01 Discharge Data Data Completed and Pending Labs on day of discharge: Labs from last 24 hours 06/21/20 06/21/20 06/20/20 05:30 05:30 13:51 WBC 12.0 H RBC 3.70 L Hgb 10.5 L Hct 31.1 L MCV 84.1 MCH 28.4 MCHC 33.8 RDW 11.9 Plt Count 200 MPV 9.5 Neut % (Auto) 80.2 H Lymph % (Auto) 3.7 L [place] % (Auto) 15.7 H Eos % (Auto) 0.2 Baso % (Auto) 0.2 Lymph # (Auto) 0.45 L [place] # (Auto) 1.88 H Eos # (Auto) 0.03 Baso # (Auto) 0.02 Absolute Neutrophils 9.63 H ABG Methemoglobin 0.3 L VBG pH 7.23 VBG pCO2 36.7 VBG pO2 45.0 VBG HCO3 14.9 VBG Total CO2 16.0 VBG O2 Saturation 68.4 VBG Base Excess -12 L VBG Lactic Acid Carboxyhemoglobin 3.4 H Total Hemoglobin 12.4 L Sodium 133 Potassium 3.0 L Chloride 105 Carbon Dioxide 18 L Anion Gap 10.0 BUN 18 Creatinine 0.9 GFR Calculation 75 Glucose 132 H Hemoglobin A1c Estim Average Glucose Uric Acid 6.8 Calcium 8.0 L Phosphorus 1.0 L Magnesium 3.2 H Total Bilirubin 0.2 Direct Bilirubin < 0.2 GGT 11 AST 14 ALT 12 Alkaline Phosphatase 91 Lactate Dehydrogenase 188 Total Protein 5.7 L Albumin 2.1 L Globulin 3.6 Albumin/Globulin Ratio 0.6 L Triglycerides 153 H Beta-Hydroxybutyrate Urine Color Urine Appearance Urine pH Ur Specific [place] Urine Protein Urine Glucose (UA) Urine Ketones Urine Occult Blood Urine Nitrate Urine Bilirubin Urine Urobilinogen Ur Leukocyte Esterase Urine RBC Urine WBC Ur Squamous Epith Cells Urine Bacteria Urine Mucus Ur Culture Indicated? 06/20/20 06/20/20 06/20/20 11:35 11:18 11:18 WBC RBC Hgb Hct MCV MCH MCHC RDW Plt Count MPV Neut % (Auto) Lymph % (Auto) [place] % (Auto) Eos % (Auto) Baso % (Auto) Lymph # (Auto) [place] # (Auto) Eos # (Auto) Baso # (Auto) Absolute Neutrophils ABG Methemoglobin VBG pH VBG pCO2 VBG pO2 VBG HCO3 VBG Total CO2 VBG O2 Saturation VBG Base Excess VBG Lactic Acid 1.3 Carboxyhemoglobin Total Hemoglobin Sodium Potassium Chloride Carbon Dioxide Anion Gap BUN Creatinine GFR Calculation Glucose Hemoglobin A1c 10.0 H Estim Average Glucose 240 Uric Acid Calcium Phosphorus 2.7 Magnesium 2.4 Total Bilirubin Direct Bilirubin GGT AST ALT Alkaline Phosphatase Lactate Dehydrogenase Total Protein Albumin Globulin Albumin/Globulin Ratio Triglycerides Beta-Hydroxybutyrate Urine Color Yellow Urine Appearance Hazy A Urine pH 6.0 Ur Specific [place] 1.025 Urine Protein 100 A Urine Glucose (UA) >=500 A Urine Ketones 80 A Urine Occult Blood 0.20 Urine Nitrate Negative Urine Bilirubin Negative Urine Urobilinogen Negative Ur Leukocyte Esterase 500 A Urine RBC 32 H Urine WBC 105 H Ur Squamous Epith Cells 1 Urine Bacteria None Urine Mucus Few A Ur Culture Indicated? yes 06/20/20 06/20/20 11:18 11:18 WBC 13.9 H RBC 4.48 Hgb 12.8 Hct 38.2 MCV 85.3 MCH 28.6 MCHC 33.5 RDW 11.7 Plt Count 211 MPV 9.5 Neut % (Auto) 83.3 H Lymph % (Auto) 2.7 L [place] % (Auto) 13.9 H Eos % (Auto) 0 Baso % (Auto) 0.1 Lymph # (Auto) 0.37 L [place] # (Auto) 1.93 H Eos # (Auto) 0 Baso # (Auto) 0.02 Absolute Neutrophils 11.53 H ABG Methemoglobin VBG pH VBG pCO2 VBG pO2 VBG HCO3 VBG Total CO2 VBG O2 Saturation VBG Base Excess VBG Lactic Acid Carboxyhemoglobin Total Hemoglobin Sodium 125 L Potassium 3.3 Chloride 87 L Carbon Dioxide 15 L Anion Gap 23.0 H BUN 31 H Creatinine 1.3 H GFR Calculation 48 Glucose 430 H Hemoglobin A1c Estim Average Glucose Uric Acid Calcium 9.1 Phosphorus Magnesium Total Bilirubin 0.4 Direct Bilirubin GGT AST 10 ALT 14 Alkaline Phosphatase 128 H Lactate Dehydrogenase Total Protein 7.4 Albumin 3.2 Globulin 4.2 H Albumin/Globulin Ratio 0.8 L Triglycerides Beta-Hydroxybutyrate 6.14 H Urine Color Urine Appearance Urine pH Ur Specific [place] Urine Protein Urine Glucose (UA) Urine Ketones Urine Occult Blood Urine Nitrate Urine Bilirubin Urine Urobilinogen Ur Leukocyte Esterase Urine RBC Urine WBC Ur Squamous Epith Cells Urine Bacteria Urine Mucus Ur Culture Indicated? Discharge Plan Patient/Caregiver Discharge Instructions Activity: increase activity as tolerated Diet: Consistent Carbohydrate Instructions: Urinary Tract Infection in Women (GEN), Diabetic Ketoacidosis (GEN), Meal Planning with Diabetes Exchanges (GEN) Activity Restrictions/Additional Instructions: Keep a log of all blood glucose readings and time of day taken and bring to primary care provider This discharge packet is provided to you to help keep you informed about your care. We want to ensure you get everything you need when you go home. You will also be receiving a call from us in a few days to follow up with you and see how you are doing since your discharge. This gives us a chance to listen to any concerns you maybe experiencing since you were discharged or any additional needs you may have, as well as providing us feedback on your care experience. We strive to always provide excellent care and thank you for your feedback and for choosing [facility]. Prescriptions: New insulin aspart U-100 100 unit/mL (3 mL) insulin pen See Protocol unit subcut ACHS MDD 40 Qty: 15 RF: 0 Continued ondansetron HCl [Zofran] 4 mg Tablet 8 mg PO Q8H PRN (Reason: Nausea) RF: 0 telmisartan 40 mg tablet 40 mg PO DAILY RF: 0 Lantus Solostar U-100 Insulin 100 unit/mL (3 mL) insulin pen 80 unit SUBCUT HS RF: 0 Follow Up Plan Follow up with: Krissy Ernandez ARNP [Primary Care Provider] - 07/02/20 2:30 pm Patient Disposition: Home, Self-Care Prognosis: Good Overall status at discharge: patient is progressing back to baseline Discharge Orders: Discharge Order (Routine); Ordered 06/22/20 Ordered By: Brett Carlisle
[2020-06-21 16:12] LABS: Blood Urea Nitrogen 18 mg/dL (6-20); Calcium 8.1 mg/dL (8.6-10.4); Carbon Dioxide 19 mmol/L (22-30); Chloride 101 mmol/L (96-108); Glomerular Filtration Rate 75; Glucose 262 mg/dL (70-105)
[2020-06-21] MEDS ORDERED: 0.9 % SODIUM CHLORIDE 500 ML IV SCH (16:30)
[2020-06-21] MEDS: NEUTRA PHOS 1 PACKET PO SCH ×2 (16:55→20:47)
[2020-06-21] MEDS ORDERED: INSULIN GLARGINE, HUMAN 1 UNIT/0.01 ML SQ SCH (21:00)
[2020-06-22] MEDS: INSULIN LISPRO 1 UNIT/0.01 ML UNIT SQ SCH ×3 (00:37→10:34)
[2020-06-22] MEDS: HYDROcodone/APAP 5/325MG TABLET PO PRN (01:30)
[2020-06-22] MEDS: 0.9 % SODIUM CHLORIDE 10 ML SYRINGE IV SCH (05:36)
[2020-06-22 06:58] LABS: ALT/SGPT 13 U/L (<40); AST/SGOT 11 U/L (<32); Albumin 1.9 gm/dL (3.2-5.2); Albumin/Globulin Ratio 0.6 (1.0-2.3); Alkaline Phosphatase 87 U/L (39-117); Bilirubin,Direct < 0.2 mg/dL (<0.3); Bilirubin,Total 0.3 mg/dL (0.1-1.0); Blood Urea Nitrogen 14 mg/dL (6-20); Calcium 7.9 mg/dL (8.6-10.4); Carbon Dioxide 22 mmol/L (22-30); Chloride 103 mmol/L (96-108); Globulin 3.3 gm/dL (2.2-3.7); Glomerular Filtration Rate 87; Glucose 154 mg/dL (70-105); Lactate Dehydrogenase 166 U/L (135-225); Triglycerides 184 mg/dL (<150); Uric Acid 3.9 mg/dL (2.5-8.0)
[2020-06-22] MEDS ORDERED: POTASSIUM CHLORIDE 20 MEQ TABLET PO ONE (07:43)
[2020-06-22] MEDS: DOCUSATE SODIUM 100 MG CAPSULE PO SCH (08:39)
[2020-06-22] MEDS: cefTRIAXone 1 GM VIAL IV SCH (08:42)
[2020-06-22] MEDS: ENOXAPARIN 40 MG/0.4 ML SYRINGE SQ SCH (08:46)
[2020-06-22] MEDS ORDERED: NEUTRA PHOS 1 PACKET PO SCH (09:00)
[2020-06-22] MEDS: NEUTRA PHOS 1 PACKET PO SCH (09:48)
== END 2020-06-22 10:50 | disposition home or self-care (01) | DRG 638 ==
LOC: ED 10:05 → ICU 16:00 → MEDSUR 06-21 09:54
PROVIDERS: ADMIT Internal Medicine; ATTEND Internal Medicine